=== PATIENT | female | born 1995 | race Caucasian/White ===

== ENCOUNTER 2020-07-07 14:13 | Emergency (ER) | payer OTHER, SELFPAY ==
[2020-07-07 14:15] VITALS: BP 131/74; PULSE 114; RESP 16; TEMP 36.7; O2SAT 100; BMI 25.0
[2020-07-07 14:17] VITALS: BP 134/74; PULSE 110; RESP 16; TEMP 36.7; O2SAT 100
--- NOTE | 2020-07-07 15:16 | ED.VIS.GEN ---
History of Present Illness Chief Complaint: Fever Informant: Patient, Significant Other Narrative: Patient presents the emergency department for the evaluation of fever and rash. Patient states that about 1 week ago she went to urgent care with an apparent abscess on the anterior aspect of her right knee. She states that they attempted an I&D did not get much out and placed her on Bactrim. She took her last dose this morning. Earlier this week she began to experience fever up to 102+. Better with Advil. She states that she feels somewhat short of breath and has had a headache with her fever. Around the onset of the fever she also noticed numerous small pinpoint red spots around the knee that has now spread to her torso axilla and legs. Some are pustular some red. There none that are coalescing. No large patches of redness. Minimal cough and nasal congestion or sore throat. She does note nausea. No urinary or bowel symptoms. She states the skin on top of her knee seems stiff but it is around the thickened skin from the abscess. She states that the abscess itself is significantly better and appears basically healed. Headache with fever but none without fever Past Medical History - Allergies and Home Meds Allergies/Adverse Reactions: Allergies sulfamethoxazole [From Bactrim] Allergy (Verified 07/07/20 14:14) Hives trimethoprim [From Bactrim] Allergy (Verified 07/07/20 14:14) Hives Primary Care Physician: Yolanda Carcamo MD [STAFF PHYSICIAN] - (as needed for primary care) Care Physician,No Primary [Primary Care Provider] - Prior records reviewed: Yes Past Medical History: None Surgical History: noncontributory Smoking Status: Never smoker Drugs: None Review of Systems General: Reports: Chills, Fever, Malaise. Denies: Sweats Eyes: Denies: Visual changes - bilaterally, Diplopia ENT: Denies: Rhinorrhea, Sore throat Cardiovascular: Denies: Chest pain, Palpitations Respiratory: Reports: Dyspnea. Denies: Cough, Dyspnea on exertion Gastrointestinal: Denies: Abdominal pain, Nausea, Vomiting, Diarrhea, Melena, Hematochezia Genitourinary: Denies: Dysuria, Hematuria, Frequency Musculoskeletal: Reports: Myalgias. Denies: Back pain, Extremity Pain Skin: Reports: Rash, Abscess. Denies: Wounds Neurological: Reports: Headache. Denies: Weakness, Numbness Physical Exam Vital Signs/Narrative: Vital Signs Temp Pulse Resp BP Pulse Ox 07/07/20 14:17 98.1 F 110 H 16 134/74 H 100 07/07/20 14:15 98.1 F 114 H 16 131/74 H 100 Inital Vital Signs reviewed: Yes General: Well nourished, Well developed, No Acute Distress, - - Well-appearing female sitting comfortably in the bed. Head: Normocephalic, Atraumatic Eyes: Perrl, EOMI ENT: Moist mucous membranes, No rhinorrhea Neck: Supple, Nontender Cardiovascular: Regular rate, Regular rhythm, No murmurs Respiratory: No distress, CTA bilaterally, Chest nontender Abdomen: Soft, Nontender, Nondistended, Normal bowel sounds Back: Nontender, Normal Inspection Extremities: Nontender, No edema Skin: Normal color, Rash - Rashes noticed on the leg and torso., - - Anterior aspect of the right knee appears a basically healed area that once had a incision on it. There is no erythema. No joint effusion. No difficulty moving the leg. On the legs are multiple small pinpoint erythematous lesions some of which are pustular and appear associated with hair follicl Neurological: Alert, Oriented x3, Cranial nerves II-XII grossly intact, Normal Strength, Normal Sensation Psychological: Normal affect, Normal Mood Diagnostic/Tx/Re-eval Clinical Impression(s) from Imaging Studies Chest X-Ray 07/07/20 15:55 IMPRESSION: Normal x-ray examination of the chest. Electronically Signed: Carlos Abreu MD at 16:26 EDT Tel , Service support , Laboratory Last Values WBC 2.3 K/mm3 (4.4-11.0) L 07/07/20 15:45 RBC 4.33 M/mm3 (4.2-5.4) 07/07/20 15:45 Hgb 12.5 g/dL (12.0-15.0) 07/07/20 15:45 Hct 37.4 % (37-47) 07/07/20 15:45 MCV 86.4 fL (81-99) 07/07/20 15:45 MCH 28.9 pg (27.0-32.0) 07/07/20 15:45 MCHC 33.4 g/dL (32-36) 07/07/20 15:45 RDW Std Deviation 39.7 fl (35.1-43.9) 07/07/20 15:45 RDW Coeff of Dillon 12.5 % (11.6-14.6) 07/07/20 15:45 Plt Count 132 K/mm3 (150-450) L 07/07/20 15:45 MPV 10.1 fl (6.2-12.0) 07/07/20 15:45 Immature Gran % (Auto) 0.400 % (0.0-0.9) 07/07/20 15:45 Neut % (Auto) 70.9 % (47-70) H 07/07/20 15:45 Lymph % (Auto) 15.5 % (19-41) L 07/07/20 15:45 [place] % (Auto) 9.3 % (0-10) 07/07/20 15:45 Eos % (Auto) 3.5 % (0-5) 07/07/20 15:45 Baso % (Auto) 0.4 % (0-1) 07/07/20 15:45 Absolute Neuts (auto) 1.6 X10^3/uL (2.0-7.7) L 07/07/20 15:45 Absolute Lymphs (auto) 0.35 X10^3/uL (0.83-4.51) L 07/07/20 15:45 Nucleated RBC % 0 % (0-5) 07/07/20 15:45 Differential Comment SEE COMMENT 07/07/20 15:45 Diff Path Review January07/07/20 15:45 Platelet Estimate SLT DEC (ADEQ) 07/07/20 15:45 RBC Morphology NORM C+C NORMAL (NORM C&C) 07/07/20 15:45 Anisocytosis RARE 07/07/20 15:45 PT 13.6 SECONDS (11.7-14.9) 07/07/20 15:45 INR 1.1 07/07/20 15:45 APTT 35.5 Seconds (24.1-36.2) 07/07/20 15:45 Sodium 133 mmol/L (136-145) L 07/07/20 15:45 Potassium 3.6 mmol/L (3.5-5.1) 07/07/20 15:45 Chloride 98 mmol/L (98-107) 07/07/20 15:45 Carbon Dioxide 27.0 mmol/L (21.0-32.0) 07/07/20 15:45 Anion Gap 8 (5-15) 07/07/20 15:45 BUN 9 mg/dL (7-18) 07/07/20 15:45 Creatinine 0.84 mg/dL (0.55-1.02) 07/07/20 15:45 Estim Creat Clear Calc 98.69 ml/min 07/07/20 15:45 Est GFR (MDRD) Af Amer 105 mL/min (>60) 07/07/20 15:45 Est GFR (MDRD) Non-Af 87 mL/min (>60) 07/07/20 15:45 BUN/Creatinine Ratio 10.7 RATIO (-20) 07/07/20 15:45 Glucose 98 mg/dL (74-106) 07/07/20 15:45 Lactic Acid 0.8 mmol/L (0.4-1.9) 07/07/20 15:45 Calcium 8.4 mg/dL (8.5-10.1) L 07/07/20 15:45 Total Bilirubin 0.10 mg/dL (0.20-1.00) L 07/07/20 15:45 AST 19 U/L (15-37) 07/07/20 15:45 ALT 20 U/L (13-56) 07/07/20 15:45 Alkaline Phosphatase 71 U/L (45-117) 07/07/20 15:45 Total Protein 7.6 g/dL (6.4-8.2) 07/07/20 15:45 Albumin 3.9 g/dL (3.2-5.0) 07/07/20 15:45 Globulin 3.7 g/dL (2.2-4.2) 07/07/20 15:45 Albumin/Globulin Ratio 1.1 RATIO (0.9-2.4) 07/07/20 15:45 - Medical Decision Making Patient's white count is slightly leukopenic and there is a thrombocytopenia noted. Chest x-ray is clear. I think there is a high probability given the nasal congestion and some nausea body aches headache fever that this could be COVID-19. I do not think she is bacteremic at this point. I will place her on doxycycline however given the high likelihood of some MRSA that was on the knee and now this follicular lesions on the leg. I think some of the red spots may in fact be petechiae. None the case the patient clinically appears well. She will receive Tylenol as her temperature increased to 103. Covid is pending. Return if worsening or concerns ED Disposition - Plan for ED Patient: Disposition: Home or Assisted Living Diagnosis: Viral syndrome, Folliculitis, Thrombocytopenia, Suspected COVID-19 virus infection Instructions: ED Folliculitis, ED URI Viral Prescriptions: Doxycycline 100 mg PO BID #20 cap Prescription Printed Ondansetron [Zofran Odt] 4 mg PO Q6H PRN PRN #20 tab PRN Reason: Nausea Prescription Printed Referrals: Care Physician,No Primary [Primary Care Provider] - Yolanda Carcamo MD [STAFF PHYSICIAN] - (as needed for primary care) Additional Instructions: Tylenol 650 mg to 1000 mg every 6 hours as needed for fever Motrin 600 mg every 6 hours as needed for fever Drink plenty of fluids.
--- NOTE | 2020-07-07 15:55 | RAD_ITS ---
STUDY: X-RAY CHEST REASON FOR EXAM: Female, 25 years old. WAS SEEN LAST FRIDAY AT URGENT CARE AND STARTED ON ANTIBIOTICS FOR A STAPH INFECTION. PT DEVELOPED FEVER AND RASH OVER LAST COUPLE DAYS. ALSO STATES THERE IS STIFFNESS WHERE THE STAPH INFECTION WAS. TECHNIQUE: Single AP portable view of the chest. COMPARISON: None. FINDINGS: The lungs are clear and expanded. There is no demonstrated pleural abnormality. Normal size heart. Normal mediastinum and simi. Normal visualized pulmonary arteries. Normal visualized aortic arch and descending thoracic aorta. Normal visualized thoracic spine. Normal visualized ribs, clavicles, and shoulders. There is no demonstrated abnormality of the visualized soft tissue structures of the upper abdomen. RAD/Chest 1 View (Portable) IMPRESSION: Normal x-ray examination of the chest. Electronically Signed: Carlos Abreu MD at 16:26 EDT Tel , Service support ,
[2020-07-07 16:00] VITALS: BP 105/68; PULSE 106; RESP 18; TEMP 36.6; O2SAT 98
[2020-07-07 16:07] LABS: Absolute Lymphocyte Count 0.35 X10^3/uL (0.83-4.51); Absolute Neutrophil Count 1.6 X10^3/uL (2.0-7.7); Basophil# 0.01 X10^3/uL; Basophil% 0.4 % (0-1); Eosinophil# 0.08 X10^3/uL; Eosinophils% 3.5 % (0-5); Hematocrit 37.4 % (37-47); Hemoglobin 12.5 g/dL (12.0-15.0); Lymphocyte # 0.35 X10^3/ul (4.0); Lymphocyte % 15.5 % (19-41); Mean Corp Hgb Conc 33.4 g/dL (32-36); Mean Corpuscular Hgb 28.9 pg (27.0-32.0); Mean Corpuscular Volume 86.4 fL (81-99); Mean Platelet Vol. 10.1 fl (6.2-12.0); Monocyte# 0.21 X10^3/uL; Monocyte% 9.3 % (0-10); NRBC Flagged by Analyzer 0 % (0-5); Neutrophil % 70.9 % (47-70); POSITIVE DIFFERENTIAL YES; Platelet Count 132 K/mm3 (150-450); RBC Distribution Width CV 12.5 % (11.6-14.6); RBC Distribution Width SD 39.7 fl (35.1-43.9); Red Blood Count 4.33 M/mm3 (4.2-5.4); White Blood Count 2.3 K/mm3 (4.4-11.0)
[2020-07-07 16:13] LABS: International Normalized Ratio 1.1; Prothrombin Time (Protime)PT. 13.6 SECONDS (11.7-14.9)
[2020-07-07 16:15] LABS: Partial Thromboplast Time 35.5 Seconds (24.1-36.2)
[2020-07-07 16:17] LABS: Differential Indicated SCAN CRITERIA MET
[2020-07-07 16:32] LABS: ALB/GLOB Ratio 1.1 RATIO (0.9-2.4); AST(SGOT) 19 U/L (15-37); Alanine Aminotransfer ALT/SGPT 20 U/L (13-56); Albumin, Serum 3.9 g/dL (3.2-5.0); Alkaline Phosphatase 71 U/L (45-117); Anion Gap 8 (5-15); BUN 9 mg/dL (7-18); BUN/Creat Ratio 10.7 RATIO (10-20); Calcium,Total 8.4 mg/dL (8.5-10.1); Chloride 98 mmol/L (98-107); Creatinine, Serum 0.84 mg/dL (0.55-1.02); EST Glomerular Filtration Rate 87 mL/min (>60); Est Glom Filt Rate - Afr Amer 105 mL/min (>60); Estimated Creatinine Clearance 98.69 ml/min; Globulin 3.7 g/dL (2.2-4.2); Glucose 98 mg/dL (74-106); Potassium 3.6 mmol/L (3.5-5.1); Protein, Total 7.6 g/dL (6.4-8.2); Sodium Level 133 mmol/L (136-145)
[2020-07-07] MEDS: Ondansetron 4 MG/2 ML Vial IV (16:33)
[2020-07-07 16:36] LABS: Lactic Acid 0.8 mmol/L (0.4-1.9)
[2020-07-07 16:37] VITALS: TEMP 36.6
[2020-07-07 16:44] LABS: Anisocytosis RARE; Platelet Estimate SLT DEC (ADEQ); Red Cell Morphology NORM C+C NORMAL (NORM C&C)
[2020-07-07] MEDS: Acetaminophen 500 MG Tablet 1000 MG PO (18:45)
[2020-07-07 18:47] VITALS: BP 101/77; PULSE 107; PULSE 109; RESP 16; RESP 19; TEMP 39.4; O2SAT 98
[2020-07-07 18:49] VITALS: TEMP 39.4
--- NOTE | 2020-07-08 14:01 | ED.RN ---
PATIENT CALLS REQUESTING MEDICATIONS FOR DOXYCYCLINE AND ZOFRAN BE SENT TO [facility] INSTEAD OF THE PAPER COPIES SHE RECEIVED. DR. MARTINEZ MADE AWARE AND APPROVED, DOXYCYCLINE 100 MG BID #20 AND ZOFRAN ODT 4MG PO Q6H PRN NAUSEA #20.
[2020-07-10 13:53] LABS: Pathologist Review Reviewed
== END 2020-07-07 18:56 | disposition home or self-care (01) ==
PROVIDERS: Emergency Provider Emergency Medicine
DX: B34.9 Viral infection, unspecified (principal); L73.9 Follicular disorder, unspecified; D69.6 Thrombocytopenia, unspecified
CPT/HCPCS: 71045; 80053; 83605; 85025; 85610; 85730; 87040; 87635; 96374; 99283; J7030; A4216; J2405; U0003